=== PATIENT | male | born 1985 | race Caucasian/White ===

== ENCOUNTER 2018-01-24 11:44 | Emergency (ER) | payer SELFPAY ==
[~2018-01-24] VITALS: Ht 182.9 cm; Wt 137.0 kg
[2018-01-24 11:54] VITALS: BP 158/67; PULSE 51; RESP 16; TEMP 98.2; O2SAT 100
[2018-01-24] MEDS ORDERED: SODIUM CHLOR 0.9% 1000 ML INJ 1,000 ML IV SCH (13:21)
[2018-01-24] MEDS ORDERED: SODIUM CHLORIDE 0.9% FLUSH 10 ML FLUSH IV FLUSH PRN (13:30)
[2018-01-24] MEDS ORDERED: LIDOCAINE VISCOUS 2% SOLN 15 ML UDC PO ONE (13:30)
[2018-01-24] MEDS ORDERED: ALUMINUM/MAGNESIUM/SIMETH 30 ML CUP PO ONE (13:30)
[2018-01-24] MEDS ORDERED: ONDANSETRON HCL 4 MG/2 ML VIAL IVP ONE (13:30)
[2018-01-24] MEDS ORDERED: KETOROLAC TROMETHAMINE 30 MG/ML (IVP) VIAL IVP ONE (13:30)
--- NOTE | 2018-01-24 13:30 | PD ---
HPI Chief Complaint: GI Complaint Time Seen by Provider: 12:55 Travel History International Travel<30 days: No Contact w/Intl Traveler<30days: No Traveled to known affect area: No History of Present Illness HPI 32-year-old male presents to the emergency room for evaluation of epigastric abdominal pain, nausea, vomiting, and 2 episodes of diarrhea earlier today. Patient states the pain woke him from his sleep at 5:00 in the morning. He has not taken anything for symptoms. There is no radiation. States he had similar symptoms about a year ago and was diagnosed with gastritis. States the only thing that helped him at that time was Toradol. Patient ate wings and pizza yesterday which likely exacerbated his symptoms. He denies any chronic medical conditions or daily medications. Patient drinks a few beers on the weekend. PFSH Past Medical History Medical History: Denies Significant Hx ?: Not Past Surgical History Surgical History: No Previous Surgery Social History Alcohol Use: Yes (weekly) Tobacco Use: No Substance Use: No Allergies-Medications (Allergen,Severity, Reaction): Coded Allergies: No Known Allergies (Unverified , 01/24/18) Reported Meds & Prescriptions Reported Meds & Active Scripts Active Protonix (Pantoprazole Sodium) 40 Mg Tab 40 Mg PO DAILY Carafate (Sucralfate) 1 Gram Tab 1 Gm PO QID On empty stomach Zofran (Ondansetron HCl) 4 Mg Tab 4 Mg PO Q8HR PRN Bentyl (Dicyclomine HCl) 10 Mg Cap 20 Mg PO TID Review of Systems Except as stated in HPI: all other systems reviewed are Neg Physical Exam Narrative GENERAL: Well-nourished, well-developed male in no acute distress. Afebrile. Ambulatory. SKIN: Focused skin assessment warm/dry. HEAD: Normocephalic. EYES: No scleral icterus. No injection or drainage. NECK: Supple, trachea midline. No JVD or lymphadenopathy. CARDIOVASCULAR: Regular rate and rhythm without murmurs, gallops, or rubs. RESPIRATORY: Breath sounds equal bilaterally. No accessory muscle use. GASTROINTESTINAL: Abdomen soft, nondistended. Decreased bowel sounds. Mild tenderness to palpation of the epigastric region. Data Data Last Documented VS Vital Signs Date Time Temp Pulse Resp B/P (MAP) Pulse Ox O2 Delivery O2 Flow Rate FiO2 3/15/18 11:54 98.2 51 16 158/67 (97) 100 Orders Orders Complete Blood Count With Diff (01/24/18 13:21) Comprehensive Metabolic Panel (01/24/18 13:21) Lipase (01/24/18 13:21) Iv Access Insert/Monitor (01/24/18 13:21) Ondansetron Inj (Zofran Inj) (01/24/18 13:30) Sodium Chlor 0.9% 1000 Ml Inj (Ns 1000 M (01/24/18 13:21) Sodium Chloride 0.9% Flush (Ns Flush) (01/24/18 13:30) Ketorolac Inj (Toradol Inj) (01/24/18 13:30) Al-Mag Hy-Si 40-40-4 Mg/Ml Liq (Mag-Al P (01/24/18 13:30) Lidocaine 2% Viscous (Xylocaine 2% Visco (01/24/18 13:30) Sodium Chlor 0.9% 1000 Ml Inj (Ns 1000 M (01/24/18 14:30) Ed Discharge Order (01/24/18 14:58) Labs Laboratory Tests Test 01/24/18 13:30 White Blood Count 9.8 TH/MM3 Red Blood Count 5.39 MIL/MM3 Hemoglobin 15.8 GM/DL Hematocrit 45.1 % Mean Corpuscular Volume 83.8 FL Mean Corpuscular Hemoglobin 29.3 PG Mean Corpuscular Hemoglobin Concent 35.0 % Red Cell Distribution Width 13.8 % Platelet Count 263 TH/MM3 Mean Platelet Volume 8.5 FL Neutrophils (%) (Auto) 80.9 % Lymphocytes (%) (Auto) 15.0 % Monocytes (%) (Auto) 3.5 % Eosinophils (%) (Auto) 0.1 % Basophils (%) (Auto) 0.5 % Neutrophils # (Auto) 7.9 TH/MM3 Lymphocytes # (Auto) 1.5 TH/MM3 Monocytes # (Auto) 0.3 TH/MM3 Eosinophils # (Auto) 0.0 TH/MM3 Basophils # (Auto) 0.0 TH/MM3 CBC Comment DIFF FINAL Differential Comment Blood Urea Nitrogen 20 MG/DL Creatinine 1.31 MG/DL Random Glucose 125 MG/DL Total Protein 8.2 GM/DL Albumin 4.6 GM/DL Calcium Level 9.8 MG/DL Alkaline Phosphatase 59 U/L Aspartate Amino Transf (AST/SGOT) 38 U/L Alanine Aminotransferase (ALT/SGPT) 84 U/L Total Bilirubin 0.9 MG/DL Sodium Level 141 MEQ/L Potassium Level 4.1 MEQ/L Chloride Level 105 MEQ/L Carbon Dioxide Level 26.7 MEQ/L Anion Gap 9 MEQ/L Estimat Glomerular Filtration Rate 63 ML/MIN Lipase 117 U/L MDM Medical Decision Making Medical Screen Exam Complete: Yes Emergency Medical Condition: Yes Medical Record Reviewed: Yes Differential Diagnosis Gastritis, GERD, PUD, pancreatitis Narrative Course 32-year-old male presents to the emergency room for evaluation of epigastric abdominal pain, nausea, vomiting, and diarrhea that started earlier today. Patient has had something like this before and was diagnosed with gastritis. States it improved with Toradol. Patient denies alcohol. Physical exam is reassuring. Patient resting comfortably in bed. He does have some tenderness to palpation of the epigastric region. No rebound tenderness or guarding. No indication for imaging at this time. IV access established basic labs obtained. CBC is unremarkable. CMP is remarkable for elevated BUN and creatinine. Patient has a very mild elevation of liver enzymes. Lipase is negative. He was given 2 L of fluid, Zofran, Toradol, and GI cocktail with moderate relief in symptoms. Patient likely has gastritis, gastroenteritis, or even PUD. He was told to follow-up with gastroenterology's for outpatient endoscopy if symptoms persist. Discharge with prescriptions for Bentyl, Zofran , Carafate, and Protonix. Told to follow-up or return for worsening symptoms. He understands and agrees to plan. Diagnosis Primary Impression: Gastroenteritis Referrals: Primary Care Physician Additional Instructions: Take Zofran as directed, as needed for nausea. Take Bentyl as directed, as needed for cramping. Take Carafate 30 minutes prior to eating to help with abdominal pain. Take Protonix as directed, until gone. Follow-up with a pastry decorator if symptoms persist for outpatient endoscopy. Return for worsening symptoms. Med/Other Pt SpecificInfo: Prescription(s) given Scripts Pantoprazole (Protonix) 40 Mg Tab 40 MG PO DAILY for Reflux, #30 TAB 0 Refills Prov: Shahram Merino MD 01/24/18 Sucralfate (Carafate) 1 Gram Tab 1 GM PO QID for Ulcer Prevention, #30 TAB 0 Refills On empty stomach Prov: Shahram Merino MD 01/24/18 Ondansetron (Zofran) 4 Mg Tab 4 MG PO Q8HR Y for NAUSEA OR VOMITING, #15 TAB 0 Refills Prov: Shahram Merino MD 01/24/18 Dicyclomine (Bentyl) 10 Mg Cap 20 MG PO TID for Bowel Management, #10 CAP 0 Refills Prov: Shahram Merino MD 01/24/18 Disposition: 01 DISCHARGE HOME Condition: Stable Sujata Gomez Jan 24, 2018 13:30
[2018-01-24 13:40] LABS: AUTOMATED NEUTROPHIL # 7.9 TH/MM3 (1.8-7.7); BASOPHIL % 0.5 % (0.0-2.0); EOSINOPHIL % 0.1 % (0.0-4.0); HEMATOCRIT 45.1 % (39.0-51.0); HEMOGLOBIN 15.8 GM/DL (13.0-17.0); LYMPHOCYTE # 1.5 TH/MM3 (1.0-4.8); MEAN CELL VOLUME 83.8 FL (80.0-100.0); MEAN CORPUSCULAR HEMOGLOBIN 29.3 PG (27.0-34.0); MEAN PLATELET VOLUME 8.5 FL (7.0-11.0); MONO % 3.5 % (0.0-8.0); MONOCYTE # 0.3 TH/MM3 (0-0.9); NEUT % 80.9 % (16.0-70.0); PLATELET COUNT 263 TH/MM3 (150-450); RED BLOOD COUNT 5.39 MIL/MM3 (4.50-5.90); RED CELL DISTRIBUTION WIDTH 13.8 % (11.6-17.2); WHITE BLOOD COUNT 9.8 TH/MM3 (4.0-11.0)
[2018-01-24 14:09] LABS: ALBUMIN 4.6 GM/DL (3.4-5.0); ALKALINE PHOSPHATASE 59 U/L (45-117); ALT (GPT) 84 U/L (12-78); AST (GOT) 38 U/L (15-37); BICARBONATE 26.7 MEQ/L (21.0-32.0); BLOOD UREA NITROGEN 20 MG/DL (7-18); CALCIUM 9.8 MG/DL (8.5-10.1); CHLORIDE 105 MEQ/L (98-107); CREATININE 1.31 MG/DL (0.60-1.30); GLOMERULAR FILTRATION RATE 63 ML/MIN (>89); GLUCOSE,RANDOM 125 MG/DL (74-106); SODIUM (NA) 141 MEQ/L (136-145); TOTAL BILIRUBIN ADULT 0.9 MG/DL (0.2-1.0); TOTAL PROTEIN 8.2 GM/DL (6.4-8.2)
[2018-01-24] MEDS ORDERED: SODIUM CHLOR 0.9% 1000 ML INJ 1,000 ML IV ONE (14:30)
[2018-01-24] MEDS ORDERED: PROT40TA PO (15:00)
[2018-01-24] MEDS ORDERED: ZOFR4TAB PO (15:00)
[2018-01-24] MEDS ORDERED: DICY10 PO (15:00)
[2018-01-24] MEDS ORDERED: CARA1TAB6 PO (15:00)
== END 2018-01-24 15:21 | disposition home or self-care (01) ==
LOC: NEPD 11:44
DX: K52.9 Noninfective gastroenteritis and colitis, unspecified (principal); Z79.899 Other long term (current) drug therapy
CPT/HCPCS: 80053; 83690; 85025; 96361; 96374; 96375; 99284; J1885; J2405; J7030